=== PATIENT | male | born 1970 | race Caucasian/White ===

== ENCOUNTER 2019-03-03 14:33 | Emergency (ER) | payer MEDICAID ==
[~2019-03-03] VITALS: Ht 175.3 cm; Wt 81.6 kg
[2019-03-03 14:38] VITALS: BP 137/96
[2019-03-03] MEDS ORDERED: KETOROLAC TROMETH 60MG/2ML VIAL IM ONE (16:00)
== END 2019-03-03 16:56 | disposition home or self-care (01) ==
LOC: ER 14:33
DX: G89.29 Other chronic pain (principal); M54.5 Low back pain; F17.210 Nicotine dependence, cigarettes, uncomplicated
CPT/HCPCS: 72220; 96372; 99283; J1885

== ENCOUNTER 2020-11-20 16:07 | Emergency (ER) | payer MEDICAID ==
[~2020-11-20] VITALS: Ht 175.3 cm; Wt 79.4 kg
[2020-11-20 16:20] VITALS: BP 122/78
== END 2020-11-20 16:22 | disposition left against medical advice (07) ==
LOC: EDBD 16:07 → ER 16:07
DX: F41.9 Anxiety disorder, unspecified (principal); Z53.21 Procedure and treatment not carried out due to patient leaving prior to being seen by health care provider

== ENCOUNTER 2021-06-23 16:51 | Emergency (ER) | payer MEDICAID ==
[~2021-06-23] VITALS: Ht 182.9 cm; Wt 68.0 kg
[2021-06-23] MEDS ORDERED: CEPHALEXIN 250 MG CAP PO ONE (18:45)
[2021-06-23] MEDS ORDERED: KETOROLAC TROMETH 30 MG/ML 1ML VIAL IM ONE (18:45)
[2021-06-23] MEDS ORDERED: CEPH-509 PO (21:07)
[2021-06-23 21:15] VITALS: BP 112/52
== END 2021-06-23 20:52 | disposition home or self-care (01) ==
LOC: ER 16:51 → EDBD 16:51 → ER 20:52
DX: L03.116 Cellulitis of left lower limb (principal); F10.129 Alcohol abuse with intoxication, unspecified; F17.210 Nicotine dependence, cigarettes, uncomplicated; Z59.00 Homelessness unspecified; Y90.9 Presence of alcohol in blood, level not specified
CPT/HCPCS: 82962; 96372; 99285; J1885